=== PATIENT | male | born 1975 | race Caucasian/White ===

== ENCOUNTER 2017-11-05 10:27 | Emergency (ER) | payer MEDICAID ==
[~2017-11-05] VITALS: Ht 177.8 cm; Wt 108.9 kg
[2017-11-05 10:32] VITALS: BP 114/66
--- NOTE | 2017-11-05 10:37 | NUR ---
PT ABULATES TO ER BED 9
--- NOTE | 2017-11-05 10:45 | NUR ---
PT C/O LEFT INEX FINGER PAIN S/P LACERATION THAT HAPPENED WHILE USING A "FILING ROCK" TO SHARPING A TOOL ROUGHLY 1 HOUR AGO. FULL THICKNESS, ADIPOSE TISSUE EXPOSED, APPROXIMATELY 1-2 CM IN LENGTH AND JAGGED TO LEFT DORSAL INDEX FINGER. PT A&O X 4. GCS 15. CMS INTACT. FULL SENSATION OF FINGERS/HAND, DENIES NUMBNESS/TINGLING. PULSES PALPABLE. BLEEDING CONTROLLED. RR EVEN AND UNLABORED. LUNGS CLEAR. ER MD BRUNO NOTIFIED. PT NEEDS MET. SAFETY PRECAUTIONS IN PLACE. WILL CONTINUE TO MONITOR.
[2017-11-05] MEDS ORDERED: LIDOCAINE 1% 500 MG/50 ML VIAL INJ SCH (10:50)
--- NOTE | 2017-11-05 10:52 | NUR ---
XRAY AT BEDSIDE
[2017-11-05] MEDS ORDERED: BACITRACIN OINT 500 UNITS/GM PKT TP ONE (10:57)
[2017-11-05 12:33] VITALS: BP 117/65
--- NOTE | 2017-11-05 12:33 | NUR ---
Patient discharged with v/s stable. Written and verbal after care instructions given and explained. Patient alert, oriented and verbalized understanding of instructions. Ambulatory with steady gait. All questions addressed prior to discharge. ID band removed. Patient advised to follow up with PMD. Rx of Keflex and Naprosyn given. Patient educated on indication of medication including possible reaction and side effects. Opportunity to ask questions provided and answered.
== END 2017-11-05 12:33 | disposition home or self-care (01) ==
LOC: MED 10:27
DX: S61.211A Laceration without foreign body of left index finger without damage to nail, initial encounter (principal); E11.9 Type 2 diabetes mellitus without complications; W45.8XXA Other foreign body or object entering through skin, initial encounter; Y93.89 Activity, other specified; Y99.8 Other external cause status; Y92.89 Other specified places as the place of occurrence of the external cause
CPT/HCPCS: 12001; 73140; 99284; J2001; Q0092

== ENCOUNTER 2020-01-22 17:49 | Inpatient (IN) | payer MEDICAID ==
[~2020-01-22] VITALS: Ht 172.7 cm; Wt 108.4 kg
[2020-01-22 17:50] VITALS: BP 113/61
--- NOTE | 2020-01-22 18:04 | NUR ---
44 Y/O M C/C VOMITING/NAUSEA SINCE 0200 HOURS, PER PT > 6 EPISODES HEMATEMESIS BLACK IN COLOR. PER PT POOR APPETITE, UNABLE TO TOLERATE FLUIDS OR FOOD. PT PASSING FLATUS, LAST BM 30 MIN AGO, NORMAL/FORMED/BLACK IN COLOR. PT DENIES ABDONIMAL PAIN/DYSPNEA/CHEST PAIN. PT PRESENTS PALE,JAUNDICE IN COLOR. A/OX4,OCCITAN PRIMARY,AMBULATORY,EUPNIC. NKA. HX DM. RX METFORMIN. DENIES USE OF DRUGS/LAST ALCOHOL DRINK 8 DAYS AGO. NO DIARREAH. SIDE RAIL X1.
--- NOTE | 2020-01-22 18:33 | NUR ---
PT RESTING IN BED, SIDE RAIL X1
--- NOTE | 2020-01-22 19:18 | NUR ---
REPORT GIVEN TO SUSU CONCEPCION FOR CONTINUITY OF CARE
[2020-01-22] MEDS ORDERED: PANTOPRAZOLE 40 MG INJ VIAL IVP ONE (19:20)
[2020-01-22] MEDS ORDERED: NACL 0.9% 1,000 ML IV ONE (19:20)
[2020-01-22] MEDS ORDERED: PANTOPRAZOLE 40 MG INJ VIAL ONE (19:22)
[2020-01-22 19:52] LABS: MEAN CORPUSCULAR HEMOGLOBIN 20 pg (27-31); RED BLOOD CELL COUNT(AUTO) 3.34 MIL/uL (4.20-6.10)
[2020-01-22 19:57] LABS: MEAN CORPUSCULAR HGB CONC 30 g/dL (33-37); MEAN CORPUSCULAR VOLUME 65.9 fL (80-94); PLATELET COUNT (AUTO) 115 K/uL (140-450); RED CELL DISTRIBUTION WIDTH 19.1 % (11.6-13.7)
[2020-01-22 20:01] LABS: PROTHROMBIN TIME 12.7 secs (10.8-13.4)
[2020-01-22 20:03] LABS: ANION GAP 18.8 (8-16); CARBON DIOXIDE 20.6 mmol/L (21-32); CREATININE 1.1 mg/dL (0.6-1.3); POTASSIUM 4.4 mmol/L (3.5-5.1)
[2020-01-22 20:05] LABS: HEMOGLOBIN 6.6 g/dL (12.0-18.0)
[2020-01-22] MEDS ORDERED: ONDANSETRON 4 MG/2 ML VIAL IVP ONE (20:05)
[2020-01-22 20:26] LABS: EOSINOPHILS % (MANUAL) 0 % (0-4); LYMPHOCYTES % (MANUAL) 15 % (20-46); MONOCYTES % (MANUAL) 7 % (5-12)
--- NOTE | 2020-01-22 20:50 | NUR ---
CT CONSENT SIGNED, BLOOD ADMINISTRATION CONSENT SIGNED.
[2020-01-22] MEDS ORDERED: cefTRIAXone 1,000 MG VIAL ONE (20:51)
[2020-01-22] MEDS ORDERED: METF500T PO (20:55)
--- NOTE | 2020-01-22 21:10 | NUR ---
Patient taken to CT via gurney.
[2020-01-22] MEDS: DEXT 5% /NACL 0.9% 1,000 ML IV SCH (22:13)
[2020-01-22] MEDS ORDERED: ACETAMINOPHEN 325 MG TAB PO PRN (22:15)
[2020-01-22] MEDS ORDERED: guaiFENesin DM 200/20 MG-10 ML 10 ML UDC PO PRN (22:15)
[2020-01-22] MEDS ORDERED: ONDANSETRON 4 MG/2 ML VIAL IM/IVP PRN (22:15)
[2020-01-22] MEDS ORDERED: ZOLPIDEM 5 MG TAB PO PRN (22:15)
[2020-01-22] MEDS ORDERED: DOCUSATE SODIUM 100 MG GELCAP PO PRN (22:15)
[2020-01-22] MEDS ORDERED: POTASSIUM CHLORIDE 40 MEQ, LIDOCAINE MPF 1% 25 MG in NACL 0.9% 250 ML IV PRN (22:15)
--- NOTE | 2020-01-22 22:30 | NUR ---
pt admitted to the care of Dr. Price. admitted to telemetry room 125. report given to Natalie CONCEPCION.
[2020-01-22 22:59] LABS: CHOL/HDL RATIO 5.8 (1-4.5); FREE T4 (FREE THYROXINE) 0.96 ng/dL (0.76-1.46); MAGNESIUM 1.9 mg/dL (1.8-2.4); PHOSPHORUS 2.2 mg/dL (2.5-4.9); THYROID STIMULATING HORMONE 1.47 uIU/mL (0.34-3.74)
--- NOTE | 2020-01-22 23:00 | NUR ---
RECEIVED REPORT FORM SUSU CONCEPCION DAYSHIFT NURSE AT BEDSIDE FOR CONTINUITY OF CARE, PT IN STABLE CONDITION.
--- NOTE | 2020-01-22 23:30 | NUR ---
PT IS AOX4 ESTONIAN SPEAKING, HE HAS NO C/O OF PAIN AT THIS TIME. PT SAID HE HAD X1 DAY OF COUGHING UP BLOOD. PT NJ H AND H IS 6.6. PT LOOKS JAUNDICE, HE ALSO HAS HX OF LIVER CIRRHOSIS AND DM2. PT SKIN INTACT AND HE IS BREATHING ROOM AIR. HE HAS IV SITE ON LEFT F/A 18 GUAGE WHICH IS SALINE LOCKED AT THIS TIME. MRSA SWAB DONE, ADMIT V/S FOLLOWS: T 98.7 P 86 R 18 B/P 91/55 02 94% ON ROOM AIR. ALL UNIVERSAL FALLS PRECAUTIONS IN PLACE.
[2020-01-23 00:14] LABS: APPEARANCE,URINE CLEAR (CLEAR); BILIRUBIN,URINE NEGATIVE (NEGATIVE); BLOOD, URINE NEGATIVE (NEGATIVE); COLOR,URINE YELLOW (YELLOW); LEUKOCYTE ESTERASE ,URINE NEGATIVE (NEGATIVE); NITRITE, URINE NEGATIVE (NEGATIVE); UGLUCOSE 2+ (NEGATIVE)
[2020-01-23 00:18] LABS: BARBITURATE, URINE NEGATIVE ng/ml (NEG <=200); BENZODIAZEPINE, URINE NEGATIVE ng/mL (NEG <=200); CANNABINOID, URINE NEGATIVE ng/mL (NEG <=50); COCAINE, URINE NEGATIVE ng/mL (NEG <=300); OPIATE, URINE NEGATIVE ng/mL (NEG <=2000); PHENCYCLIDINE SCREEN,URINE NEGATIVE ng/mL (NEG <=25)
[2020-01-23 00:25] LABS: RBC,URINE 0-5 /HPF (0-5); WBC,URINE 0-5 /HPF (0-5)
--- NOTE | 2020-01-23 01:00 | NUR ---
BLOOD TRANSFUSION STARTED, V/S FOLLOWS: T98.0 P 103 R 18 B/P 85/40 02 94% ON ROOM AIR. ALL UNIVERSAL PRECAUTIONS IN PLACE.
--- NOTE | 2020-01-23 01:55 | NUR ---
BLOOD TRANSFUSION IN PROGRESS, NO ADVERSE EFFECTS NOTED.
[2020-01-23 04:00] VITALS: BP 98/58
--- NOTE | 2020-01-23 04:00 | NUR ---
BLOOD TRANSFUSION IS COMPLETED NO ADVERSE EFFECTS NOTED. POST TRANSFUSION V/S FOLLOWS: T 98.0 P 94 R 18 B/P 98/58 02 100% ON ROOM AIR.
[2020-01-23 06:20] LABS: HEMATOCRIT 21.2 % (36-52); MEAN CORPUSCULAR HEMOGLOBIN 22 pg (27-31); MEAN CORPUSCULAR HGB CONC 31 g/dL (33-37); MEAN CORPUSCULAR VOLUME 69.4 fL (80-94); PLATELET COUNT (AUTO) 74 K/uL (140-450); RED BLOOD CELL COUNT(AUTO) 3.06 MIL/uL (4.20-6.10); RED CELL DISTRIBUTION WIDTH 22.7 % (11.6-13.7); WHITE BLOOD COUNT (AUTO) 8.8 K/uL (4.8-10.8)
[2020-01-23 06:35] LABS: HEMOGLOBIN 6.6 g/dL (12.0-18.0)
--- NOTE | 2020-01-23 06:47 | NUR ---
HEMOGLOBIN IS 6.6 . NOT REPORTED TO MD BECAUSE HGB REMANED UNCHANGED
[2020-01-23 06:51] LABS: ANION GAP 12.1 (8-16); CARBON DIOXIDE 24.7 mmol/L (21-32); CREATININE 0.8 mg/dL (0.6-1.3); POTASSIUM 3.8 mmol/L (3.5-5.1)
[2020-01-23 07:14] LABS: BASOPHILS % (MANUAL) 0 % (0-2); EOSINOPHILS % (MANUAL) 0 % (0-4); LYMPHOCYTES % (MANUAL) 22 % (20-46); MONOCYTES % (MANUAL) 10 % (5-12)
--- NOTE | 2020-01-23 07:30 | NUR ---
RECEIVED PT AAOX4. NO SOB NOTED. NO C/O PAIN. IV TO RT FOREARM PATENT AND INTACT. CHEST, CLEAR. ABDOMEN SOFT, BOWEL SOUNDS PRESENT. BED ON LOW POSITION, WITH 3 SIDE RAILS UP. INSTRUCTED PT TO CALL FOR ASSISTANCE, CALL LIGHT WITHIN REACH, PT VERBALIZED UNDERSTANDING.
[2020-01-23 08:00] VITALS: BP 114/63
[2020-01-23] MEDS: PANTOPRAZOLE 40 MG INJ VIAL IVP SCH (09:52)
[2020-01-23] MEDS: OCTREOTIDE ACETATE 1.25 MG in NACL 0.9% 250 ML IV SCH (09:53)
--- NOTE | 2020-01-23 10:30 | NUR ---
PT RESTING. NO SOB NOTED. NO COMPLAINTS MADE. NPO MAINTAINED. CARE ENDORSED TO ALLY CONCEPCION FOR CONTINUITY OF CARE.
[2020-01-23] MEDS: DEXT 5% /NACL 0.9% 1,000 ML IV SCH ×2 (10:43→23:13)
[2020-01-23] MEDS ORDERED: MIDAZOLAM 2 MG/2 ML VIAL ONE ×2 (11:00)
[2020-01-23] MEDS ORDERED: diphenhydrAMINE 50 MG/ML VIAL ONE (11:00)
[2020-01-23] MEDS: fentaNYL citrate 0.05 MG/ML VIAL ONE ×2 (11:00→11:47)
[2020-01-23 12:00] VITALS: BP 136/54
--- NOTE | 2020-01-23 12:15 | NUR ---
PATIENT BACK FROM EGD. NO DISTRESS NOTED. PAIN WITHIN TOLERABLE. WILL CONTINUE TO MONITOR.
[2020-01-23] MEDS ORDERED: MIDAZOLAM 2 MG/2 ML VIAL IVP ONE (13:45)
[2020-01-23] MEDS ORDERED: fentaNYL citrate 0.05 MG/ML VIAL IVP SCH (14:00)
[2020-01-23] MEDS ORDERED: MIDAZOLAM 2 MG/2 ML VIAL IVP SCH (14:00)
[2020-01-23] MEDS: HYDROcodone/APAP 7.5/325 MG 1 TAB PO PRN (14:21)
--- NOTE | 2020-01-23 14:23 | NUR ---
PATIENT COMPLAINS OF ABD PAIN. NORCO GIVEN AT THIS TIME. WILL CONTINUE TO MONITOR.
[2020-01-23 16:00] VITALS: BP 105/54
--- NOTE | 2020-01-23 16:45 | NUR ---
PATIENT LYING DOWN IN BED WATCHING TV. NO DISTRESS NOTED. DENIES NAUSEA/VOMITING. WILL CONTINUE TO MONITOR.
--- NOTE | 2020-01-23 19:15 | NUR ---
RECEIVED PT IN STABLE CONDITION FROM AM NURSE. TELE PT. AWAKE,ALERT AND ORIENTED X4. WITH NO C/O PAIN BUT JUST VOMITED WITH SMALL AMOUNT CLEAR LIQUID . PT IS GETTING I UNIT PRBC, STILL INFUSING AT THIS TIME ON THE RT FA G18. CLEAR AND PATENT. PLAN OF CARE DISCUSSED AND VERBALIZED UNDERSTANDING. FREQ ROUNDS NEEDED. BED ON LOW POSITION. SIDE RAILS UP X2. CALL LIGHT PLACED WITHIN EASY REACH. WILL CONTINUE TO MONITOR.
--- NOTE | 2020-01-23 19:19 | NUR ---
C/O VOMITING. MEDICATED WITH ZOFRAN IVP ORDERED. WILL CONTINUE TO MONITOR.
--- NOTE | 2020-01-23 19:31 | NUR ---
GAVE REPORT TO PARTY PLANNER NURSE FOR CONTINUITY OF CARE. PATIENT IN STABLE CONDITION.
[2020-01-23 20:00] VITALS: BP 135/55
--- NOTE | 2020-01-23 21:20 | NUR ---
I UNIT PRBC TRANSFUSION DONE. NO REACTION NOTED. VITAL SIGNS STABLE.
--- NOTE | 2020-01-23 22:36 | NUR ---
ASSISTED UP TO THE BATHROOM. ABLE TO AMBULATE NO WEAKNESS NOTED.
[2020-01-24] VITALS: BP 131/57
--- NOTE | 2020-01-24 01:30 | NUR ---
PT C/O ABDOMINAL DISCOMFORT BUT REFUSED ANY PAIN MED. WENT TO THE RESTROOM AND HAD A MODERATE AMOUNT OF DARK GREENISH /BROWN STOOL. NO BLEEDING NOTED.
[2020-01-24] MEDS: HYDROcodone/APAP 7.5/325 MG 1 TAB PO PRN (03:23)
--- NOTE | 2020-01-24 03:23 | NUR ---
AWAKE. CC ABDOMINAL PAIN . MEDICATED ORDERED. WILL CONTINUE TO MONITOR.
[2020-01-24 04:00] VITALS: BP 124/62
--- NOTE | 2020-01-24 05:00 | NUR ---
MADE ROUNDS. PT IS ASLEEP. NO S/S OF ANY DISCOMFORT NOTED.
[2020-01-24 06:38] LABS: ANION GAP 12.2 (8-16); CARBON DIOXIDE 23.6 mmol/L (21-32); CREATININE 0.7 mg/dL (0.6-1.3); POTASSIUM 3.8 mmol/L (3.5-5.1)
--- NOTE | 2020-01-24 06:50 | NUR ---
CHECKED ON PT. SLEEPING. NO S/S OF ANY DISCOMFORT NOTED. WILL FOLLOW UP LAB RESULTS THIS AM.
--- NOTE | 2020-01-24 07:05 | NUR ---
ENDORSED PT IN STABLE CONDITION TO AM NURSE.
--- NOTE | 2020-01-24 07:30 | NUR ---
PT IS LYING DOWN IN BED. AWAKE AND RESPONSIVE. NO COMPLAINS OF PAIN. NO DISTRESS NOTED. BED IN LOW POSITION. IV IN PLACE AND INFUSING IV FLUIDS. CALL LIGHT IN REACH. WILL CONTINUE TO MONITOR.
[2020-01-24 08:00] VITALS: BP 125/62
--- NOTE | 2020-01-24 09:01 | NUR ---
PATIENT HAS BEEN SCREENED AND CATEGORIZED MODERATE NUTRITION RISK. PATIENT WILL BE SEEN WITHIN 3-5 DAYS OF ADMISSION. 01/25/20 01/27/[address]
[2020-01-24 09:18] LABS: BASOPHILS % (AUTO) 0.4 % (0.0-2.0); EOSINOPHILS # (AUTO) 0.1 K/uL (0-0.4); EOSINOPHILS % (AUTO) 1.2 % (0.0-4.0); HEMATOCRIT 21.6 % (36-52); LYMPHOCYTES # (AUTO) 1.5 K/uL (2.0-11.5); LYMPHOCYTES % (AUTO) 21.4 % (20.5-51.1); MEAN CORPUSCULAR HEMOGLOBIN 22 pg (27-31); MEAN CORPUSCULAR HGB CONC 31 g/dL (33-37); MONOCYTES # (AUTO) 0.5 K/uL (0.8-1.0); MONOCYTES % (AUTO) 7.7 % (1.7-9.3); NEUTROPHILS # (AUTO) 4.9 K/uL (1.8-7.7); NEUTROPHILS % (AUTO) 69.3 % (42.2-75.2); PLATELET COUNT (AUTO) 61 K/uL (140-450); RED BLOOD CELL COUNT(AUTO) 3.01 MIL/uL (4.20-6.10); RED CELL DISTRIBUTION WIDTH 23.8 % (11.6-13.7)
[2020-01-24 09:27] LABS: HEMOGLOBIN 6.7 g/dL (12.0-18.0)
[2020-01-24] MEDS: PANTOPRAZOLE 40 MG INJ VIAL IVP SCH (09:33)
--- NOTE | 2020-01-24 09:35 | NUR ---
PT IS AWAKE IN BED. NO DISTRESS NOTED. NO COMPLAINS OF PAIN. BED IN LOW POSITION. CALL LIGHT IN REACH.
[2020-01-24] MEDS: OCTREOTIDE ACETATE 1.25 MG in NACL 0.9% 250 ML IV SCH (10:12)
--- NOTE | 2020-01-24 11:30 | NUR ---
PT IS SLEEPING IN BE. PT IS RESPONSIVE TO NAME. NO DISTRESS. WAITING FOR LAB TO GET BLOOD FOR IV. WILL CONTINUE TO MONITOR.
[2020-01-24] MEDS: DEXT 5% /NACL 0.9% 1,000 ML IV SCH (11:43)
[2020-01-24 12:00] VITALS: BP 120/51
--- NOTE | 2020-01-24 13:19 | NUR ---
PROCESS PLANNER NOTE: Patient's Orientation Unable To Assess Information Provided By MIKE MEDINA - Comments SW WAS UNABLE TO MEET PATIENT AT BEDSIDE DUE TO MEDICAL CONDITION. Tour Director, Realtionship and Phone Number MIKE MEDINA [phone] Healthcare Power of Nursing Scheduler No Does Patient Have a POLST No Identifying Problems No Social Work Triggers Is A Social Work Consult Needed No Mandate Report Filed No Explanation Of Identifying Problems PATIENT IS A 44-YEAR-OLD MALE ADMITTED FOR GI BLEED. PATIENT HAS PMHX OF DIABETES. Admitted From Home Pre-Admission Level Of Functioning Status Independent/Ambulatory Prior Resources/Services Used In Last 12 Months No Prior Resources Used Prior DME No Prior DME Used Living Situation Apartment Lives With Family Patient Had Caregiver No Home Support No Caregiver Issues Financial Issues No Known Financial Issue Factors/Needs No D/C Needs Identified Pt/Rep Participated In Discharge Plan Yes Patient/Family Agress With Discharge Plan Yes Discharge Plan Comments TENTATIVE DISCHARGE PLAN IS FOR PATIENT TO RETURN HOME. DC Plan Status Initiated
--- NOTE | 2020-01-24 13:29 | NUR ---
DISCHARGE PLANNING: THIS IS A 44 Y/O MALE PATIENT FROM HOME, WHO CAME IN DUE TO VOMITING BLOOD. PAST MEDICAL HISTORY INCLUDE DIABETES. INITIAL DIAGNOSIS OF GI BLEED. CURRENT LABS INCLUDE WBC 7.0, H/H 6.7/21.6, NA/K 140/3.8, BUN/CREA 20/0.7. ON SANDOSTATIN DRIP. MRSA AND URINE CULTURE PENDING. CT ABD/PELVIS SHOWED COLITIS OR HEPATIC COLOPATHY. GI CONSULT IN PLACE AND SEEN - S/P EGD WITH ESOPHAGEAL VARICEAL BANDING WITH DR. DIXON ON 01/23/2020. DC PLAN PENDING ON THE PATIENT'S RESPONSE TO TREATMENT.
--- NOTE | 2020-01-24 13:54 | NUR ---
PT IS RESPONSIVE. NO DISTRESS. O2 SATS AT 97%. BED IN LOW POSITION. CALL LIGHT IN REACH.
--- NOTE | 2020-01-24 14:55 | NUR ---
BLOOD INFUSION STARTED AT 1425. BASELINE VITAL SIGNS NORMAL TEMP AT 99.3. RECHECKED VS AT 1455. TEMP AT 99.5. VITAL NORMAL. NO SOB OR DISTRESS NOTED.PT IS AWAKE AND RESPONSIVE. WILL CONTINUE TO MONITOR.
[2020-01-24 15:54] VITALS: BP 129/72
--- NOTE | 2020-01-24 17:07 | NUR ---
BLOOD INFUSION ENDED. NO REACTION. PT TOLERATED WELL. POST TRANSFUSION VS WNL. NO DISTRESS. WILL CONTINUE TO MONITOR.
--- NOTE | 2020-01-24 19:15 | NUR ---
SHIFT REPORT GIVEN TO ZIPPER JOINER NURSE. PT IS IN BED IN STABLE CONDITION.
--- NOTE | 2020-01-24 19:15 | NUR ---
RECEIVED PT AAOX4 , NID - O2 SAT WNL , IV SITE INTACT AND PATENT , AMBULATORY , ON TELE MONITOR - SR . DENIES ANY PAIN , NO ACTIVE BLEEDING NOTED AT THIS TIME . PER AM NURSE 1 UNIT OF BLOOD GIVEN TO PT - NO POST BT REACTION UNTIL THIS TIME . SAFETY MEASURES IN PLACE . CALL LIGHT WITHIN REACH. PLAN OF CARE DISCUSSED AND VERBALIZE UNDERSTANDING. WILL CONT. TO MONITOR.
[2020-01-24 20:00] VITALS: BP 122/63
--- NOTE | 2020-01-24 22:00 | NUR ---
MADE ROUNDS , NO S/SX OF ACUTE DISTRESS NOTED . CALL LIGHT WITHIN REACH.
--- NOTE | 2020-01-24 22:44 | NUR ---
ENDORSED TO NURSE ALVAREZ FOR CONTINUITY OF CARE - PT - STABLE .
--- NOTE | 2020-01-24 22:45 | NUR ---
RECEIVED PT ON BED, AAOX4, BURMESE SPEAKING, DENIES ANY PAIN, NO SOB NOTED, ON SANDOSTATIN DRIP AT 10ML/H AND IVF OF D5 NS AT 80 ML INFUSING WELL, NO SIGNS OF N/V NOTED, CALL LIGHT WITHIN REACH.
[2020-01-25] VITALS: BP 132/63
[2020-01-25] MEDS: DEXT 5% /NACL 0.9% 1,000 ML IV SCH
--- NOTE | 2020-01-25 | NUR ---
PT SLEEPING, NO SIGNS OF DISTRESS, EASILY AROUSABLE, VITAL SIGNS STABLE, DENIES ANY PAIN, IVF AND SANDOSTATIN DRIP INFUSING WELL, CONTINUE TO MONITOR CLOSELY.
[2020-01-25] MEDS ORDERED: DEXTROSE 50% 50 ML SYR IVP PRN (01:45)
--- NOTE | 2020-01-25 03:40 | NUR ---
PT SLEEPING, EASILY AROUSABLE, VITAL SIGNS STABLE, DENIES ANY PAIN, NO SOB NOTED, IVF INFUSING WELL, MONITORED CLOSELY.
[2020-01-25 04:00] VITALS: BP 107/62
--- NOTE | 2020-01-25 05:45 | NUR ---
PT AWAKE, BLOOD SUGAR CHECKED WITH 230 RESULT, WILL COVER WITH SLIDING SCALE, DENIES ANY PAIN OR SOB, IVF INFUSING WELL, MONITORED CLOSELY.
[2020-01-25 06:00] LABS: BASOPHILS % (AUTO) 0.3 % (0.0-2.0); EOSINOPHILS # (AUTO) 0.1 K/uL (0-0.4); HEMATOCRIT 23.3 % (36-52); HEMOGLOBIN 7.4 g/dL (12.0-18.0); LYMPHOCYTES # (AUTO) 1.2 K/uL (2.0-11.5); MEAN CORPUSCULAR HEMOGLOBIN 23 pg (27-31); MEAN CORPUSCULAR HGB CONC 32 g/dL (33-37); MONOCYTES # (AUTO) 0.4 K/uL (0.8-1.0); MONOCYTES % (AUTO) 8.1 % (1.7-9.3); NEUTROPHILS % (AUTO) 63.6 % (42.2-75.2); PLATELET COUNT (AUTO) 53 K/uL (140-450); RED BLOOD CELL COUNT(AUTO) 3.19 MIL/uL (4.20-6.10); RED CELL DISTRIBUTION WIDTH 24.6 % (11.6-13.7); WHITE BLOOD COUNT (AUTO) 4.7 K/uL (4.8-10.8)
[2020-01-25] MEDS: INSULIN LISPRO SLIDING SCALE 100 UNITS/ML VIAL SUBQ PRN ×2 (06:20→11:40)
[2020-01-25 06:27] LABS: ANION GAP 11.3 (8-16); CARBON DIOXIDE 26.6 mmol/L (21-32); CREATININE 0.7 mg/dL (0.6-1.3); POTASSIUM 3.9 mmol/L (3.5-5.1)
--- NOTE | 2020-01-25 06:30 | NUR ---
4 UNITS HUMALOG ADMINISTERED FOR BLOOD SUGAR OF 230, IVF INFUSING WELL, TOLERATING FULL LIQUID DIET, MONITORED CLOSELY.
[2020-01-25] MEDS: BLOOD GLUCOSE MONITORING 1 DEV DEV FS SCH ×2 (06:32→11:36)
--- NOTE | 2020-01-25 07:40 | NUR ---
PT AWAKE, NO SIGNS OF DISTRESS, IV LINE INFILTRATED, DC IV WITH CANNULA INTACT, JUANITA CONCEPCION INSERTED NEW IV LINE TO RT HAND GAUGE 24, IVF AND SANDOSTATIN DRIP RESUMED, REPORT GIVEN TO JAMEY CONLEY FOR CONTINUITY OF CARE.
--- NOTE | 2020-01-25 07:41 | NUR ---
RECEIVED BEDSIDE REPORT FROM INSPECTOR WREATH NURSE ANTONIO FOR CONTINUITY OF CARE. PATIENT RESTING IN BED WITH NO ACUTE DISTRESS. AWAKE, AAO X4, KYRGYZ SPEAKING. SAFETY MEASURES IN PLACE. WILL CONTINUE TO MONITOR.
[2020-01-25 08:00] VITALS: BP 107/60
--- NOTE | 2020-01-25 08:48 | NUR ---
SCHEDULED MEDICATION GIVEN, EDUCATION PROVIDED, PATIENT TOLERATED WELL. IV AT RIGHT HAND 24 G PATENT AND INTACT. SN DISCONTINUED D5 NS. START NS @ 80 CC/HR PER MD ORDER. RIGHT FOREARM EDEMA DUE TO PREVIOUS IV INFILTRATION. ELEVATED AND PUT PILLOW UNDERNEATH. EDUCATION PROVIDED. CALL LIGHT WITHIN REACH, WILL CONTINUE TO MONITOR.
[2020-01-25] MEDS ORDERED: NACL 0.9% 1,000 ML IV SCH (08:55)
[2020-01-25] MEDS ORDERED: FERROUS SULFATE 325 MG TABEC PO SCH (09:25)
[2020-01-25] MEDS: PANTOPRAZOLE 40 MG INJ VIAL IVP SCH (09:28)
[2020-01-25] MEDS: OCTREOTIDE ACETATE 1.25 MG in NACL 0.9% 250 ML IV SCH (10:00)
[2020-01-25] MEDS ORDERED: OMEP20TC12 PO (11:04)
[2020-01-25] MEDS ORDERED: FERR325E14 PO (11:04)
--- NOTE | 2020-01-25 11:44 | NUR ---
8 UNITS OF HUMALOG ADMINISTERED WITH BLOOD GLUCOSE LEVEL 303. PATIENT TOLERATED WELL. PATIENT DENIES PAIN, SAFETY MEASURES IN PLACE. WILL CONTINUE TO MONITOR.
[2020-01-25] MEDS ORDERED: LEVO750T2 PO (13:21)
--- NOTE | 2020-01-25 14:25 | NUR ---
DISCHARGE INSTRUCTION GIVEN, PATIENT SIGNED DISCHARGE PAPER. ALSO INFORMED PATIENT'S TO FOLLOW WITH MD APPOINTMENT AND TAKE PRESCRIBED MEDICATIONS. PATIENT'S READY TO GO WHEN PATIENT'S GOING TO PRODUCTION ESTIMATOR THE PT.
--- NOTE | 2020-01-25 15:00 | NUR ---
RECEIVED CALL FROM PATIENT'S . PATIENT IS READY TO GO, ID REMOVED, IV REMOVED.
--- NOTE | 2020-01-25 15:05 | NUR ---
[facility] PATIENT'S CAME TO SECRET CODE EXPERT THE PATIENT AND DISCHARGED.
== END 2020-01-25 15:09 | disposition home or self-care (01) | DRG 720 ==
LOC: MED 17:49 → MMU 20:49
PROVIDERS: ADMIT Family Medicine; ATTEND Family Medicine
PROC: 06L38CZ Occlusion of Esophageal Vein with Extraluminal Device, Via Natural or Artificial Opening Endoscopic (ICD-10-PCS; 2020-01-23)
PROC: 30233N1 Transfusion of Nonautologous Red Blood Cells into Peripheral Vein, Percutaneous Approach (ICD-10-PCS; principal; 2020-01-23 11:00)
DX: A41.9 Sepsis, unspecified organism (principal); K52.9 Noninfective gastroenteritis and colitis, unspecified; E44.0 Moderate protein-calorie malnutrition; D50.0 Iron deficiency anemia secondary to blood loss (chronic); D69.6 Thrombocytopenia, unspecified; E78.5 Hyperlipidemia, unspecified; I85.10 Secondary esophageal varices without bleeding; K70.30 Alcoholic cirrhosis of liver without ascites; E11.9 Type 2 diabetes mellitus without complications; E83.39 Other disorders of phosphorus metabolism; K76.6 Portal hypertension
CPT/HCPCS: 36415; 36430; 71045; 80048; 80053; 80305; 81001; 82150; 82948; 83036; 83690; 83735; 83880; 84100; 84436; 84439; 84443; 84479; 84484; 85025; 85610; 85730; 86886; 86900; 86901; 86920; 87081; 87086; 96365; 96375; 99291; C9113; J0696; J1200; J2001; J2250; J2354; J2405; J3010; J3480; J7030; J7042; P9016; Q9967

== ENCOUNTER 2020-09-21 18:50 | Inpatient (IN) | payer MEDICAID, SELFPAY ==
[~2020-09-21] VITALS: Ht 180.3 cm; Wt 104.8 kg
[~2020-09-21 18:50] MED LIST: FERR325E14 PO; LEVO750T2 PO; METF500T PO; OMEP20TC12 PO
[2020-09-21 19:01] VITALS: BP 57/38
[2020-09-21] MEDS ORDERED: ONDANSETRON 4 MG/2 ML VIAL IVP ONE ×2 (19:10→20:35)
[2020-09-21] MEDS ORDERED: PANTOPRAZOLE 40 MG INJ VIAL IVP ONE (19:10)
[2020-09-21] MEDS ORDERED: NACL 0.9% 1,000 ML IV ONE ×2 (19:10→21:10)
[2020-09-21] MEDS ORDERED: cefTRIAXone 1,000 MG VIAL ONE (19:22)
[2020-09-21] MEDS ORDERED: OCTREOTIDE ACETATE 100 MCG/ML VIAL IV STA (19:24)
[2020-09-21] MEDS ORDERED: OCTREOTIDE ACETATE 1.25 MG in NACL 0.9% 250 ML IV SCH (19:25)
[2020-09-21 19:41] LABS: BASOPHILS # (AUTO) 0.3 K/uL (0.00-0.22); BASOPHILS % (AUTO) 2.3 % (0.0-2.0); EOSINOPHILS # (AUTO) 0.1 K/uL (0-0.4); EOSINOPHILS % (AUTO) 0.5 % (0.0-4.0); HEMATOCRIT 35.8 % (36-52); HEMOGLOBIN 12.1 g/dL (12.0-18.0); LYMPHOCYTES # (AUTO) 1.4 K/uL (2.0-11.5); LYMPHOCYTES % (AUTO) 12.6 % (20.5-51.1); MEAN CORPUSCULAR HEMOGLOBIN 28 pg (27-31); MEAN CORPUSCULAR HGB CONC 34 g/dL (33-37); MEAN CORPUSCULAR VOLUME 84.1 fL (80-94); MONOCYTES # (AUTO) 0.6 K/uL (0.8-1.0); MONOCYTES % (AUTO) 5.6 % (1.7-9.3); NEUTROPHILS # (AUTO) 8.6 K/uL (1.8-7.7); PLATELET COUNT (AUTO) 114 K/uL (140-450); RED BLOOD CELL COUNT(AUTO) 4.26 MIL/uL (4.20-6.10); RED CELL DISTRIBUTION WIDTH 15.5 % (11.6-13.7); WHITE BLOOD COUNT (AUTO) 10.9 K/uL (4.8-10.8)
[2020-09-21 20:01] LABS: ALBUMIN 3.1 g/dL (3.4-5.0); CARBON DIOXIDE 25.9 mmol/L (21-32); CREATININE 1.2 mg/dL (0.6-1.3); TOTAL BILIRUBIN 2.1 mg/dL (0.0-1.0)
[2020-09-21] MEDS ORDERED: OCTREOTIDE ACETATE 1000 MCG/5 ML VIAL ONE (20:02)
[2020-09-21 20:03] LABS: ANION GAP 10.9 (8-16); POTASSIUM 4.8 mmol/L (3.5-5.1)
[2020-09-21] MEDS ORDERED: NOREPINEPHRINE 8 MG in DEXTROSE 5% 250 ML IV PRN (20:30)
[2020-09-21] MEDS ORDERED: DEXTROSE 50% 50 ML SYR IVP PRN (20:30)
[2020-09-21] MEDS ORDERED: LORazepam 2 MG/ML VIAL IM/IVP PRN (20:30)
[2020-09-21] MEDS ORDERED: LORazepam 2 MG/ML VIAL IVP PRN (20:30)
[2020-09-21] MEDS ORDERED: HYDROcodone/APAP 5/325 MG 1 TAB TAB PO PRN (20:30)
[2020-09-21] MEDS ORDERED: DOCUSATE SODIUM 100 MG GELCAP PO PRN (20:30)
[2020-09-21] MEDS ORDERED: ZOLPIDEM 5 MG TAB PO PRN (20:30)
[2020-09-21] MEDS ORDERED: MORPHINE SULFATE 2 MG/ML SYR IVP PRN (20:30)
[2020-09-21] MEDS ORDERED: ACETAMINOPHEN 325 MG TAB PO PRN (20:30)
[2020-09-21] MEDS ORDERED: GLIP10TA3 PO (20:50)
[2020-09-21] MEDS ORDERED: ASPI-1822 PO (20:53)
[2020-09-21] MEDS ORDERED: METF1000 PO (20:53)
[2020-09-21 21:07] LABS: FREE T4 (FREE THYROXINE) 0.98 ng/dL (0.76-1.46); MAGNESIUM 2.4 mg/dL (1.8-2.4); PHOSPHORUS 3.7 mg/dL (2.5-4.9); THYROID STIMULATING HORMONE 1.05 uIU/mL (0.34-3.74)
[2020-09-21 22:43] VITALS: BP 96/49
[2020-09-21] MEDS: BLOOD GLUCOSE MONITORING 1 DEV DEV FS SCH (22:51)
[2020-09-21] MEDS: INSULIN LISPRO SLIDING SCALE 100 UNITS/ML VIAL SUBQ PRN (22:59)
[2020-09-21 23:00] VITALS: BP 99/61
[2020-09-21] MEDS ORDERED: PANTOPRAZOLE 40 MG INJ VIAL ONE (23:01)
[2020-09-21] MEDS: PANTOPRAZOLE 80 MG in NACL 0.9% 100 ML IVP SCH (23:20)
[2020-09-21 23:45] VITALS: BP 102/62
[2020-09-21] MEDS: NACL 0.9% 1,000 ML IV SCH (23:58)
[2020-09-22] VITALS (29 sets, daily range): BP systolic 70–132; BP diastolic 38–77
[2020-09-22] MEDS ORDERED: PIPERACILLIN/TAZOBACTAM 2.25 GM VIAL IV ONE (00:27)
[2020-09-22] MEDS: PIPERACILLIN/TAZOBACTAM 2.25 GM in DEXTROSE 5% 50 ML IV SCH ×5 (01:00→23:15)
[2020-09-22 01:11] LABS: APPEARANCE,URINE CLEAR (CLEAR); BILIRUBIN,URINE NEGATIVE (NEGATIVE); BLOOD, URINE TRACE-I (NEGATIVE); COLOR,URINE YELLOW (YELLOW); LEUKOCYTE ESTERASE ,URINE NEGATIVE (NEGATIVE); NITRITE, URINE NEGATIVE (NEGATIVE); UGLUCOSE 1+ (NEGATIVE)
[2020-09-22 01:20] LABS: BARBITURATE, URINE NEGATIVE ng/ml (NEG <=200); BENZODIAZEPINE, URINE NEGATIVE ng/mL (NEG <=200); CANNABINOID, URINE NEGATIVE ng/mL (NEG <=50); COCAINE, URINE NEGATIVE ng/mL (NEG <=300); OPIATE, URINE NEGATIVE ng/mL (NEG <=2000); PHENCYCLIDINE SCREEN,URINE NEGATIVE ng/mL (NEG <=25)
[2020-09-22 01:22] LABS: WBC,URINE 0-5 /HPF (0-5)
[2020-09-22 01:39] LABS: HEMATOCRIT 35.7 % (36-52); HEMOGLOBIN 11.9 g/dL (12.0-18.0)
[2020-09-22] MEDS ORDERED: NOREPINEPHRINE 4 MG/4 ML VIAL IV ONE (02:38)
[2020-09-22] MEDS: ONDANSETRON 4 MG/2 ML VIAL IVP PRN ×2 (02:59→09:51)
[2020-09-22 06:24] LABS: EOSINOPHILS % (AUTO) 0.1 % (0.0-4.0); HEMATOCRIT 37.1 % (36-52); HEMOGLOBIN 12.3 g/dL (12.0-18.0); LYMPHOCYTES # (AUTO) 1.4 K/uL (2.0-11.5); LYMPHOCYTES % (AUTO) 9.4 % (20.5-51.1); MEAN CORPUSCULAR HEMOGLOBIN 28 pg (27-31); MEAN CORPUSCULAR HGB CONC 33 g/dL (33-37); MEAN CORPUSCULAR VOLUME 84.7 fL (80-94); MONOCYTES # (AUTO) 1.2 K/uL (0.8-1.0); MONOCYTES % (AUTO) 8.2 % (1.7-9.3); NEUTROPHILS # (AUTO) 12.2 K/uL (1.8-7.7); NEUTROPHILS % (AUTO) 82.3 % (42.2-75.2); PLATELET COUNT (AUTO) 105 K/uL (140-450); RED BLOOD CELL COUNT(AUTO) 4.38 MIL/uL (4.20-6.10); RED CELL DISTRIBUTION WIDTH 15.2 % (11.6-13.7); WHITE BLOOD COUNT (AUTO) 14.9 K/uL (4.8-10.8)
[2020-09-22] MEDS: NACL 0.9% 1,000 ML IV SCH ×2 (06:30→07:30)
[2020-09-22 06:35] LABS: ANION GAP 11.2 (8-16); CARBON DIOXIDE 24.1 mmol/L (21-32); CREATININE 0.8 mg/dL (0.6-1.3); POTASSIUM 4.3 mmol/L (3.5-5.1)
[2020-09-22] MEDS ORDERED: LIDOCAINE MPF 1% 5 ML ONE (06:37)
[2020-09-22] MEDS ORDERED: cefTRIAXone 1,000 MG VIAL ONE (06:37)
[2020-09-22 06:40] LABS: MAGNESIUM 2.2 mg/dL (1.8-2.4); PHOSPHORUS 3.8 mg/dL (2.5-4.9)
[2020-09-22] MEDS: BLOOD GLUCOSE MONITORING 1 DEV DEV FS SCH ×4 (06:54→20:34)
[2020-09-22] MEDS ORDERED: cefTRIAXone 1,000 MG in LIDOCAINE MPF 1% 2.1 ML IM ONE (07:00)
[2020-09-22] MEDS ORDERED: cefTRIAXone 1,000 MG in LIDOCAINE MPF 1% 2.1 ML INJ ONE (07:00)
[2020-09-22] MEDS: INSULIN LISPRO SLIDING SCALE 100 UNITS/ML VIAL SUBQ PRN ×3 (07:01→20:40)
[2020-09-22] MEDS: PANTOPRAZOLE 80 MG in NACL 0.9% 100 ML IVP SCH (09:00)
[2020-09-22] MEDS: LACTULOSE 20 GM/30 ML UDC PO SCH ×2 (09:19→20:52)
[2020-09-22] MEDS ORDERED: fentaNYL citrate 0.05 MG/ML VIAL ONE (12:21)
[2020-09-22] MEDS ORDERED: diphenhydrAMINE 50 MG/ML VIAL ONE (12:21)
[2020-09-22] MEDS ORDERED: MIDAZOLAM 5 MG/5 ML VIAL ONE (12:22)
[2020-09-22] MEDS: chlordiazePOXIDE 25 MG CAP PO SCH ×2 (12:35→20:52)
[2020-09-22] MEDS ORDERED: fentaNYL citrate 0.05 MG/ML VIAL IVP ONE (13:25)
[2020-09-22] MEDS ORDERED: MIDAZOLAM 2 MG/2 ML VIAL IVP ONE (13:25)
[2020-09-22] MEDS ORDERED: NOREPINEPHRINE 4 MG in DEXTROSE 5% 250 ML IV PRN (15:15)
[2020-09-22] MEDS: PANTOPRAZOLE 40 MG INJ VIAL IVP SCH (20:51)
[2020-09-23] VITALS (10 sets, daily range): BP systolic 97–126; BP diastolic 61–75
[2020-09-23] MEDS: NACL 0.9% 1,000 ML IV SCH ×3 (02:34→22:30)
[2020-09-23] MEDS: chlordiazePOXIDE 25 MG CAP PO SCH ×3 (04:07→20:38)
[2020-09-23] MEDS: PIPERACILLIN/TAZOBACTAM 2.25 GM in DEXTROSE 5% 50 ML IV SCH ×3 (05:36→16:56)
[2020-09-23 05:41] LABS: BASOPHILS % (AUTO) 0.3 % (0.0-2.0); EOSINOPHILS # (AUTO) 0.1 K/uL (0-0.4); EOSINOPHILS % (AUTO) 1.2 % (0.0-4.0); HEMATOCRIT 30.1 % (36-52); HEMOGLOBIN 10.1 g/dL (12.0-18.0); LYMPHOCYTES % (AUTO) 25.5 % (20.5-51.1); MEAN CORPUSCULAR HEMOGLOBIN 29 pg (27-31); MEAN CORPUSCULAR HGB CONC 34 g/dL (33-37); MEAN CORPUSCULAR VOLUME 85.4 fL (80-94); MONOCYTES # (AUTO) 0.9 K/uL (0.8-1.0); MONOCYTES % (AUTO) 10.7 % (1.7-9.3); NEUTROPHILS % (AUTO) 62.3 % (42.2-75.2); RED BLOOD CELL COUNT(AUTO) 3.52 MIL/uL (4.20-6.10); RED CELL DISTRIBUTION WIDTH 15.8 % (11.6-13.7)
[2020-09-23 06:23] LABS: ANION GAP 9.9 (8-16); CARBON DIOXIDE 27.1 mmol/L (21-32); CREATININE 0.7 mg/dL (0.6-1.3)
[2020-09-23 06:28] LABS: MAGNESIUM 2.5 mg/dL (1.8-2.4)
[2020-09-23 08:08] LABS: PLATELET COUNT (AUTO) 75 K/uL (140-450)
[2020-09-23] MEDS: BLOOD GLUCOSE MONITORING 1 DEV DEV FS SCH ×4 (08:26→20:52)
[2020-09-23] MEDS: INSULIN LISPRO SLIDING SCALE 100 UNITS/ML VIAL SUBQ PRN ×4 (08:27→20:47)
[2020-09-23] MEDS: PANTOPRAZOLE 40 MG INJ VIAL IVP SCH ×2 (08:32→20:39)
[2020-09-23] MEDS: LACTULOSE 20 GM/30 ML UDC PO SCH ×2 (08:32→20:38)
[2020-09-23] MEDS: ONDANSETRON 4 MG/2 ML VIAL IVP PRN (14:02)
[2020-09-24] VITALS: BP 143/68
[2020-09-24] MEDS: PIPERACILLIN/TAZOBACTAM 2.25 GM in DEXTROSE 5% 50 ML IV SCH ×5 (01:17→23:28)
[2020-09-24 04:00] VITALS: BP 102/59
[2020-09-24] MEDS: chlordiazePOXIDE 25 MG CAP PO SCH ×3 (05:00→20:36)
[2020-09-24 06:42] LABS: BASOPHILS % (AUTO) 0.3 % (0.0-2.0); EOSINOPHILS # (AUTO) 0.1 K/uL (0-0.4); EOSINOPHILS % (AUTO) 1.2 % (0.0-4.0); HEMATOCRIT 25.3 % (36-52); HEMOGLOBIN 8.6 g/dL (12.0-18.0); LYMPHOCYTES # (AUTO) 1.2 K/uL (2.0-11.5); LYMPHOCYTES % (AUTO) 20.6 % (20.5-51.1); MEAN CORPUSCULAR HEMOGLOBIN 29 pg (27-31); MEAN CORPUSCULAR HGB CONC 34 g/dL (33-37); MEAN CORPUSCULAR VOLUME 85.5 fL (80-94); MONOCYTES # (AUTO) 0.7 K/uL (0.8-1.0); MONOCYTES % (AUTO) 11.8 % (1.7-9.3); NEUTROPHILS % (AUTO) 66.1 % (42.2-75.2); RED BLOOD CELL COUNT(AUTO) 2.96 MIL/uL (4.20-6.10); RED CELL DISTRIBUTION WIDTH 15.3 % (11.6-13.7)
[2020-09-24 06:50] LABS: ANION GAP 10.8 (8-16); CARBON DIOXIDE 24.6 mmol/L (21-32); CREATININE 0.7 mg/dL (0.6-1.3); POTASSIUM 3.4 mmol/L (3.5-5.1)
[2020-09-24 07:01] LABS: PLATELET COUNT (AUTO) 63 K/uL (140-450)
[2020-09-24 07:02] LABS: WHITE BLOOD COUNT (AUTO) 6.1 K/uL (4.8-10.8)
[2020-09-24] MEDS: INSULIN LISPRO SLIDING SCALE 100 UNITS/ML VIAL SUBQ PRN ×4 (07:25→20:39)
[2020-09-24] MEDS: BLOOD GLUCOSE MONITORING 1 DEV DEV FS SCH ×4 (07:26→20:40)
[2020-09-24 08:00] VITALS: BP 122/68
[2020-09-24] MEDS: NACL 0.9% 1,000 ML IV SCH ×3 (08:30→23:29)
[2020-09-24] MEDS ORDERED: POTASSIUM CHLORIDE 10 MEQ TABER PO SCH (08:35)
[2020-09-24] MEDS: LACTULOSE 20 GM/30 ML UDC PO SCH ×2 (08:54→20:36)
[2020-09-24] MEDS: PANTOPRAZOLE 40 MG INJ VIAL IVP SCH ×2 (08:54→20:37)
[2020-09-24 12:00] VITALS: BP 109/63
[2020-09-24 16:00] VITALS: BP 109/57
[2020-09-25 04:00] VITALS: BP 107/56
[2020-09-25] MEDS: chlordiazePOXIDE 25 MG CAP PO SCH ×2 (04:26→13:18)
[2020-09-25] MEDS: PIPERACILLIN/TAZOBACTAM 2.25 GM in DEXTROSE 5% 50 ML IV SCH ×2 (05:07→12:08)
[2020-09-25 05:55] LABS: CARBON DIOXIDE 26.6 mmol/L (21-32); CREATININE 0.8 mg/dL (0.6-1.3); POTASSIUM 3.6 mmol/L (3.5-5.1)
[2020-09-25 06:02] LABS: BASOPHILS % (AUTO) 0.4 % (0.0-2.0); EOSINOPHILS # (AUTO) 0.1 K/uL (0-0.4); HEMOGLOBIN 8.4 g/dL (12.0-18.0); RED CELL DISTRIBUTION WIDTH 15.3 % (11.6-13.7)
[2020-09-25 06:06] LABS: EOSINOPHILS % (AUTO) 2.6 % (0.0-4.0); HEMATOCRIT 24.5 % (36-52); LYMPHOCYTES # (AUTO) 1.4 K/uL (2.0-11.5); MEAN CORPUSCULAR HEMOGLOBIN 30 pg (27-31); MEAN CORPUSCULAR HGB CONC 34 g/dL (33-37); MONOCYTES # (AUTO) 0.6 K/uL (0.8-1.0); NEUTROPHILS # (AUTO) 3.7 K/uL (1.8-7.7); PLATELET COUNT (AUTO) 83 K/uL (140-450); RED BLOOD CELL COUNT(AUTO) 2.85 MIL/uL (4.20-6.10); WHITE BLOOD COUNT (AUTO) 5.8 K/uL (4.8-10.8)
[2020-09-25] MEDS: BLOOD GLUCOSE MONITORING 1 DEV DEV FS SCH ×2 (07:56→12:13)
[2020-09-25 08:00] VITALS: BP 113/62
[2020-09-25] MEDS: INSULIN LISPRO SLIDING SCALE 100 UNITS/ML VIAL SUBQ PRN (08:02)
[2020-09-25] MEDS: LACTULOSE 20 GM/30 ML UDC PO SCH (09:47)
[2020-09-25] MEDS: PANTOPRAZOLE 40 MG INJ VIAL IVP SCH (09:47)
[2020-09-25] MEDS ORDERED: PANT40EC PO (10:54)
[2020-09-25] MEDS ORDERED: LACT10SO11 PO (10:54)
== END 2020-09-25 14:20 | disposition home or self-care (01) | DRG 720 ==
LOC: MED 18:50 → MMU 20:32 → MIC 21:31 → MTU 09-23 15:05
PROVIDERS: ADMIT Family Medicine; ATTEND Family Medicine
PROC: 30233N1 Transfusion of Nonautologous Red Blood Cells into Peripheral Vein, Percutaneous Approach (ICD-10-PCS; 2020-09-22)
PROC: 06L38CZ Occlusion of Esophageal Vein with Extraluminal Device, Via Natural or Artificial Opening Endoscopic (ICD-10-PCS; principal; 2020-09-22 14:20)
DX: A41.9 Sepsis, unspecified organism (principal); J96.01 Acute respiratory failure with hypoxia; I85.11 Secondary esophageal varices with bleeding; I95.9 Hypotension, unspecified; R57.8 Other shock; R57.1 Hypovolemic shock; E44.0 Moderate protein-calorie malnutrition; E11.65 Type 2 diabetes mellitus with hyperglycemia; D62 Acute posthemorrhagic anemia; K74.60 Unspecified cirrhosis of liver; K72.90 Hepatic failure, unspecified without coma; R18.8 Other ascites; R65.10 Systemic inflammatory response syndrome (SIRS) of non-infectious origin without acute organ dysfunction; E87.0 Hyperosmolality and hypernatremia; E87.6 Hypokalemia; N39.0 Urinary tract infection, site not specified; Z20.822 Contact with and (suspected) exposure to COVID-19; J45.909 Unspecified asthma, uncomplicated; I10 Essential (primary) hypertension; E66.9 Obesity, unspecified; E78.5 Hyperlipidemia, unspecified; Z79.899 Other long term (current) drug therapy; Z79.82 Long term (current) use of aspirin; Z79.84 Long term (current) use of oral hypoglycemic drugs; Z84.89 Family history of other specified conditions; Z87.891 Personal history of nicotine dependence; Z68.32 Body mass index [BMI] 32.0-32.9, adult
CPT/HCPCS: 36415; 71045; 76705; 80048; 80053; 80305; 81001; 82140; 82150; 82948; 83036; 83690; 83735; 83880; 84100; 84439; 84443; 84484; 85018; 85025; 85610; 85730; 86886; 86900; 86901; 86920; 87040; 87081; 87086; 93005; 96365; 96367; 96375; 99291; 99292; C9113; G0482; J0696; J1200; J1815; J2001; J2250; J2354; J2405; J2543; J3010; J3490; J7030; J7060; P9016

== ENCOUNTER 2020-11-18 08:11 | Inpatient (IN) | payer MEDICAID, SELFPAY ==
[~2020-11-18] VITALS: Ht 177.8 cm; Wt 98.4 kg
[~2020-11-18 08:11] MED LIST changes: +ASPI-1822 PO; +GLIP10TA3 PO; +LACT10SO11 PO; -LEVO750T2 PO; +METF1000 PO; -METF500T PO; -OMEP20TC12 PO; +PANT40EC PO
[2020-11-18 08:16] VITALS: BP 124/61
[2020-11-18 08:46] LABS: BASOPHILS % (AUTO) 0.6 % (0.0-2.0); EOSINOPHILS # (AUTO) 0.1 K/uL (0-0.4); EOSINOPHILS % (AUTO) 3.2 % (0.0-4.0); HEMATOCRIT 32.3 % (36-52); HEMOGLOBIN 10.2 g/dL (12.0-18.0); LYMPHOCYTES # (AUTO) 0.8 K/uL (2.0-11.5); MEAN CORPUSCULAR HEMOGLOBIN 23 pg (27-31); MEAN CORPUSCULAR HGB CONC 32 g/dL (33-37); MEAN CORPUSCULAR VOLUME 72.9 fL (80-94); MONOCYTES # (AUTO) 0.3 K/uL (0.8-1.0); MONOCYTES % (AUTO) 9.4 % (1.7-9.3); NEUTROPHILS # (AUTO) 2.1 K/uL (1.8-7.7); NEUTROPHILS % (AUTO) 61.8 % (42.2-75.2); PLATELET COUNT (AUTO) 48 K/uL (140-450); RED BLOOD CELL COUNT(AUTO) 4.43 MIL/uL (4.20-6.10); RED CELL DISTRIBUTION WIDTH 22.8 % (11.6-13.7); WHITE BLOOD COUNT (AUTO) 3.4 K/uL (4.8-10.8)
[2020-11-18 09:01] LABS: ALBUMIN 3.2 g/dL (3.4-5.0); ANION GAP 13.3 (8-16); CARBON DIOXIDE 23.3 mmol/L (21-32); CREATININE 0.7 mg/dL (0.6-1.3); POTASSIUM 3.6 mmol/L (3.5-5.1)
[2020-11-18 09:20] LABS: PROTHROMBIN TIME 11.7 secs (10.8-13.4)
[2020-11-18] MEDS ORDERED: DOCUSATE SODIUM 100 MG GELCAP PO PRN (10:05)
[2020-11-18] MEDS ORDERED: ONDANSETRON 4 MG/2 ML VIAL IVP PRN (10:05)
[2020-11-18] MEDS ORDERED: ACETAMINOPHEN 325 MG TAB PO PRN (10:05)
[2020-11-18] MEDS ORDERED: ZOLPIDEM 5 MG TAB PO PRN (10:05)
[2020-11-18] MEDS ORDERED: LORazepam 2 MG/ML VIAL IM/IVP PRN (10:05)
[2020-11-18] MEDS ORDERED: NACL 0.9% 1,000 ML IV SCH (10:05)
[2020-11-18] MEDS ORDERED: HYDROcodone/APAP 5/325 MG 1 TAB TAB PO PRN (10:05)
[2020-11-18] MEDS ORDERED: MORPHINE SULFATE 2 MG/ML SYR IVP PRN (10:05)
[2020-11-18 10:23] LABS: APPEARANCE,URINE CLEAR (CLEAR); BILIRUBIN,URINE NEGATIVE (NEGATIVE); BLOOD, URINE NEGATIVE (NEGATIVE); COLOR,URINE YELLOW (YELLOW); LEUKOCYTE ESTERASE ,URINE NEGATIVE (NEGATIVE); NITRITE, URINE NEGATIVE (NEGATIVE); UGLUCOSE NEGATIVE (NEGATIVE)
[2020-11-18 10:33] LABS: CHOL/HDL RATIO 3.8 (1-4.5); FREE T4 (FREE THYROXINE) 0.84 ng/dL (0.76-1.46); MAGNESIUM 2.1 mg/dL (1.8-2.4); PHOSPHORUS 3.5 mg/dL (2.5-4.9); THYROID STIMULATING HORMONE 1.46 uIU/mL (0.34-3.74)
[2020-11-18 10:38] LABS: BARBITURATE, URINE NEGATIVE ng/ml (NEG <=200); BENZODIAZEPINE, URINE NEGATIVE ng/mL (NEG <=200); CANNABINOID, URINE NEGATIVE ng/mL (NEG <=50); COCAINE, URINE NEGATIVE ng/mL (NEG <=300); OPIATE, URINE NEGATIVE ng/mL (NEG <=2000); PHENCYCLIDINE SCREEN,URINE NEGATIVE ng/mL (NEG <=25)
[2020-11-18] MEDS ORDERED: DEXTROSE 50% 50 ML SYR IVP PRN (10:40)
[2020-11-18 12:00] VITALS: BP 99/59
[2020-11-18] MEDS: BLOOD GLUCOSE MONITORING 1 DEV DEV FS SCH ×3 (12:00→20:15)
[2020-11-18 16:00] VITALS: BP 109/65
[2020-11-18 20:00] VITALS: BP 114/59
[2020-11-18] MEDS: DEXT 5% / NACL 0.45% 1,000 ML IV SCH ×2 (20:53→20:57)
[2020-11-18] MEDS ORDERED: PANTOPRAZOLE 40 MG INJ VIAL IVP ONE (21:00)
[2020-11-19] VITALS: BP 100/56
[2020-11-19 04:00] VITALS: BP 100/52
[2020-11-19] MEDS: DEXT 5% / NACL 0.45% 1,000 ML IV SCH (06:00)
[2020-11-19] MEDS: BLOOD GLUCOSE MONITORING 1 DEV DEV FS SCH ×4 (06:55→21:47)
[2020-11-19 08:00] VITALS: BP 105/52
[2020-11-19] MEDS ORDERED: fentaNYL citrate 0.05 MG/ML VIAL ONE (08:27)
[2020-11-19] MEDS ORDERED: MIDAZOLAM 5 MG/5 ML VIAL ONE (08:28)
[2020-11-19 09:55] LABS: HEMATOCRIT 33.9 % (36-52); HEMOGLOBIN 10.5 g/dL (12.0-18.0)
[2020-11-19 12:00] VITALS: BP 105/55
[2020-11-19 16:00] VITALS: BP 103/52
[2020-11-19] MEDS ORDERED: MIDAZOLAM 2 MG/2 ML VIAL IVP ONE (16:50)
[2020-11-19] MEDS ORDERED: MIDAZOLAM 2 MG/2 ML VIAL IVP SCH ×2 (16:50→16:58)
[2020-11-19] MEDS ORDERED: fentaNYL citrate 0.05 MG/ML VIAL IVP ONE (16:50)
[2020-11-19] MEDS ORDERED: fentaNYL citrate 0.05 MG/ML VIAL IVP SCH ×2 (16:50→16:59)
[2020-11-19] MEDS: INSULIN LISPRO SLIDING SCALE 100 UNITS/ML VIAL SUBQ PRN ×2 (17:48→21:43)
[2020-11-19 20:00] VITALS: BP 114/61
[2020-11-20 06:05] LABS: BASOPHILS % (AUTO) 0.5 % (0.0-2.0); EOSINOPHILS # (AUTO) 0.1 K/uL (0-0.4); EOSINOPHILS % (AUTO) 3.6 % (0.0-4.0); HEMATOCRIT 35.7 % (36-52); HEMOGLOBIN 11.2 g/dL (12.0-18.0); LYMPHOCYTES # (AUTO) 1.1 K/uL (2.0-11.5); LYMPHOCYTES % (AUTO) 29.3 % (20.5-51.1); MEAN CORPUSCULAR HEMOGLOBIN 24 pg (27-31); MEAN CORPUSCULAR HGB CONC 32 g/dL (33-37); MEAN CORPUSCULAR VOLUME 74.5 fL (80-94); MONOCYTES # (AUTO) 0.3 K/uL (0.8-1.0); MONOCYTES % (AUTO) 8.1 % (1.7-9.3); NEUTROPHILS # (AUTO) 2.3 K/uL (1.8-7.7); NEUTROPHILS % (AUTO) 58.5 % (42.2-75.2); PLATELET COUNT (AUTO) 67 K/uL (140-450); RED BLOOD CELL COUNT(AUTO) 4.78 MIL/uL (4.20-6.10); RED CELL DISTRIBUTION WIDTH 23.1 % (11.6-13.7); WHITE BLOOD COUNT (AUTO) 3.9 K/uL (4.8-10.8)
[2020-11-20 06:19] LABS: ANION GAP 11.8 (8-16); CARBON DIOXIDE 24.1 mmol/L (21-32); CREATININE 0.7 mg/dL (0.6-1.3); POTASSIUM 3.9 mmol/L (3.5-5.1)
[2020-11-20] MEDS: BLOOD GLUCOSE MONITORING 1 DEV DEV FS SCH ×2 (06:51→11:30)
[2020-11-20 08:00] VITALS: BP 116/55
[2020-11-20] MEDS ORDERED: DOCU-299 PO (10:27)
[2020-11-20] MEDS ORDERED: DOCUSATE SODIUM 100 MG GELCAP PO PRN (12:30)
[2020-11-20] MEDS: INSULIN LISPRO SLIDING SCALE 100 UNITS/ML VIAL SUBQ PRN (12:31)
[2020-11-20] MEDS ORDERED: glipiZIDE 10 MG TAB PO SCH (16:30)
[2020-11-20] MEDS ORDERED: metFORMIN 500 MG TAB PO SCH (17:00)
[2020-11-20] MEDS ORDERED: FERROUS SULFATE 325 MG TABEC PO SCH (18:00)
[2020-11-20] MEDS ORDERED: LACTULOSE 20 GM/30 ML UDC PO SCH (21:00)
[2020-11-21] MEDS ORDERED: PANTOPRAZOLE 40 MG TABEC PO SCH (09:00)
[2020-11-21] MEDS ORDERED: ASPIRIN 81 MG TAB.CHEW PO SCH (09:00)
== END 2020-11-20 12:30 | disposition home or self-care (01) | DRG 254 ==
LOC: MED 08:11 → MTU 09:59
PROVIDERS: ADMIT Family Medicine; ATTEND Family Medicine
PROC: 0DJ08ZZ Inspection of Upper Intestinal Tract, Via Natural or Artificial Opening Endoscopic (ICD-10-PCS; principal; 2020-11-19 08:30)
DX: K31.89 Other diseases of stomach and duodenum (principal); K92.0 Hematemesis; D69.6 Thrombocytopenia, unspecified; I85.10 Secondary esophageal varices without bleeding; E44.1 Mild protein-calorie malnutrition; D64.9 Anemia, unspecified; E11.9 Type 2 diabetes mellitus without complications; K70.30 Alcoholic cirrhosis of liver without ascites; E66.9 Obesity, unspecified; Z20.822 Contact with and (suspected) exposure to COVID-19; Z68.31 Body mass index [BMI] 31.0-31.9, adult; Z79.82 Long term (current) use of aspirin; Z79.84 Long term (current) use of oral hypoglycemic drugs
CPT/HCPCS: 36415; 71045; 76700; 80048; 80053; 80305; 81003; 82150; 82948; 83036; 83690; 83735; 83880; 84100; 84439; 84443; 84484; 85018; 85025; 85610; 85730; 86886; 86900; 86901; 87081; 93005; 99285; C9113; J2060; J2250; J3010; J7060